=== PATIENT | male | born 1995 | race Caucasian/White ===

== ENCOUNTER 2018-06-11 17:36 | Emergency (ER) | payer MEDICAID ==
[2018-06-11] MEDS ORDERED: FAMOTIDINE 20 MG/NACL 50 ML IV ONE (18:03)
[2018-06-11] MEDS ORDERED: ONDANSETRON 4 MG/2 ML VIAL IVP ONE (18:03)
[2018-06-11] MEDS ORDERED: NS 1,000 ML IV ONE (18:03)
--- NOTE | 2018-06-11 18:05 | EDPHY ---
H & P Stated Complaint: general malaise Time Seen by Provider: 06/11/18 17:43 HPI/ROS: CHIEF COMPLAINT: Vomited, thought he might faint HISTORY OF PRESENT ILLNESS: This is a 22-year-old male with a history of bipolar disorder, no medications for over 9 years. He is currently undomiciled and unemployed, new to [place] since March of this year. He has been living outside. Today he was hiking when he began to feel weak, just generally bad, thought that he might faint, "lost control of his body and began shaking", and then vomited once. He did not lose consciousness. He does not describe what sounds like seizure activity. The only thing he has eaten today was a peanut butter and jelly sandwich that he subsequently threw up. He denies headache, confusion, numbness, or weakness. He has had no head trauma. He is not experiencing abdominal pain but has mild nausea. He has not had diarrhea. He denies urinary symptoms. He has not been aware of fever. Nine years ago he took Abilify for a couple of months but became quite REVIEW OF SYSTEMS: A ten system review of systems was performed and is negative with the exception of the items mentioned in the HPI. Past medical history: Bipolar disease Past surgical history: Noncontributory Social history: No tobacco products, alcohol, illicits. He is homeless. He is unemployed. General Appearance: Alert. Vital signs reviewed. Eyes: Pupils equal and round, no conjunctival injection, no discharge. Anicteric. ENT, Mouth: Mucous membranes are slightly dry, no oropharyngeal erythema or edema. Neck: No lymphadenopathy, supple. Respiratory: Lungs are clear to auscultation; no wheezes, rales, or rhonchi. Cardiovascular: Regular rate and rhythm; no murmur, rub, or gallop. Gastrointestinal: Abdomen is soft and nontender, no masses or organomegaly, bowel sounds normal. Skin: Warm and dry, no rashes on exposed skin, normal color. Back: Nontender to palpation over the thoracolumbar spine. No CVAT. Extremities: No lower extremity edema, no calf tenderness or swelling. Neurological: Alert and oriented. Moving all four extremities easily and equally. KAN. EOMI. Facial expression symmetric. Hearing intact to spoken voice. Sensation intact to light touch over all 4 extremities. Psychiatric: Normal affect. - Personal History Current Tetanus/Diphtheria Vaccine: Unsure Current Tetanus Diphtheria and Acellular Pertussis (TDAP): Unsure - Medical/Surgical History Hx Asthma: Yes Hx Chronic Respiratory Disease: No Hx Diabetes: No Hx Cardiac Disease: No Hx Renal Disease: No Hx Cirrhosis: No Hx Alcoholism: Yes Hx HIV/AIDS: No Hx Splenectomy or Spleen Trauma: No Other PMH: bi-polar, tansient Constitutional: Initial Vital Signs Temperature (C) 36.8 C 06/11/18 17:45 Heart Rate 112 H 06/11/18 17:45 Respiratory Rate 18 06/11/18 17:45 Blood Pressure 105/63 06/11/18 17:45 O2 Sat (%) 95 06/11/18 17:45 O2 Delivery Mode Room Air Medical Decision Making ED Course/Re-evaluation: A 22-year-old male with history of bipolar disorder, unmedicated. He presents with general malaise and 1 episode of vomiting. He describes some presyncopal symptoms, did not faint. In the emergency department he received 1 L IV fluid and Zofran 4 mg p.o.. He also received Pepcid. He passed a p. O. Challenge. On reexamination is abdomen remains soft and nontender. I reviewed his labs which included CBC and chemistries. He is concerned about diabetes, as he has a family history of diabetes. He requested hemoglobin A1c in this is within normal range. I have not found an illness that would require further emergency department evaluation. He has been able to eat and drink without further vomiting. His abdomen is not surgical. I feel that he can safely be discharged. He was initially tachycardic and this resolved after the administration of fluids. He is given a referral to [facility] and informed about the hours for homeless. He is also referred to [facility]. Differential Diagnosis: I considered a differential diagnosis that includes but is not limited to GERD, pancreatitis, cholecystitis, appendicitis, gastritis, and urinary tract infection. I also considered causes of syncope and presyncope including cardiac arrhythmia, dehydration, blood loss. - Data Points Laboratory Results: Laboratory Results 06/11/18 17:45 06/11/18 17:45 Medications Given: Discontinued Medications Sodium Chloride (Ns) 1,000 mls @ 0 mls/hr IV EDNOW ONE; Wide Open PRN Reason: Protocol Stop: 06/11/18 18:04 Last Admin: 06/11/18 18:10 Dose: 1,000 mls Famotidine/Sodium Chloride (Pepcid 20 Mg (Premix)) 50 mls @ 200 mls/hr IV EDNOW ONE Stop: 06/11/18 18:17 Last Admin: 06/11/18 18:20 Dose: 50 mls Ondansetron HCl (Zofran) 4 mg IVP EDNOW ONE Stop: 06/11/18 18:04 Last Admin: 06/11/18 18:51 Dose: 4 mg Departure - Departure Disposition: Home, Routine, Self-Care Clinical Impression: Pre-syncope Condition: Good Instructions: Near Syncope (ED) Additional Instructions: I am providing you with referrals to [facility] for primary care. They have times available for the homeless. If you call them they can provide those times for you. I am also referring you to [facility]. They can help you with your bipolar disease. Please contact both [facility] and [facility] to arrange follow-up. Referrals: [facility],. [Clinic] - As per Instructions [facility] [Outside] - As per Instructions
[2018-06-11 18:15] LABS: PLATELET COUNT 452 10^3/uL (150-400)
[2018-06-11 19:56] VITALS: BP 106/54
== END 2018-06-11 19:56 | disposition home or self-care (01) ==
DX: R55 Syncope and collapse (principal); R11.10 Vomiting, unspecified; E86.9 Volume depletion, unspecified; Z59.0 Homelessness
CPT/HCPCS: 96374; J2405

== ENCOUNTER 2018-06-21 14:13 | Emergency (ER) | payer MEDICAID ==
[2018-06-21] MEDS ORDERED: NS 1,000 ML IV ONE (15:27)
--- NOTE | 2018-06-21 15:27 | EDPHY ---
H & P Stated Complaint: generalized body aches, rash, n/v; started lamictal rx on Sunday 06/18 Time Seen by Provider: 06/21/18 15:26 HPI/ROS: CHIEF COMPLAINT: Multiple complaints including nausea, vomiting, diarrhea, myalgias and a new fine rash leg since starting Lamictal. HISTORY OF PRESENT ILLNESS: Patient presents today to the ED with the above complaints after starting Lamictal 3 days ago. The patient denies any fever, cough or congestion. He denies any abdominal pain. He denies any history of fall or trauma. He denies any acute neurologic symptoms. The patient denies suicidal ideation, homicidal ideation or acute psychiatric complaints. The patient does contract for safety. He denies any recent antibiotic use or travel outside the [place]. REVIEW OF SYSTEMS: A comprehensive 10 point review of systems is otherwise negative aside from elements mentioned in the history of present illness. Source: Patient - Personal History Current Tetanus/Diphtheria Vaccine: Unsure Current Tetanus Diphtheria and Acellular Pertussis (TDAP): Unsure - Medical/Surgical History Hx Asthma: Yes Hx Chronic Respiratory Disease: No Hx Diabetes: No Hx Cardiac Disease: No Hx Renal Disease: No Hx Cirrhosis: No Hx Alcoholism: No Hx HIV/AIDS: No Hx Splenectomy or Spleen Trauma: No Other PMH: Bipolar mood disorder - Social History Smoking Status: Never smoked - Physical Exam Exam: General Appearance: Alert, no distress Eyes: Pupils equal and round no pallor or injection ENT, Mouth: Mucous membranes moist Respiratory: There are no retractions, lungs are clear to auscultation Cardiovascular: Regular rate and rhythm Gastrointestinal: Abdomen is soft and nontender, no masses, bowel sounds normal Neurological: A&O, normal motor function, normal sensory exam, normal cranial nerves Skin: 2 areas of a fine papular rash noted on the inner legs. Musculoskeletal: Neck is supple nontender Extremities: symmetrical, full range of motion Psychiatric: Patient is oriented X 3, there is no agitation Constitutional: Initial Vital Signs Temperature (C) 37.5 C 06/21/18 14:18 Heart Rate 123 H 06/21/18 14:18 Respiratory Rate 16 06/21/18 14:18 Blood Pressure 135/94 H 06/21/18 14:18 O2 Sat (%) 95 06/21/18 14:18 O2 Delivery Mode Room Air Allergies/Adverse Reactions: No Known Allergies Allergy (Unverified 06/21/18 14:17) Home Medications: Medication Instructions Recorded Lamictal 06/21/18 Medical Decision Making ED Course/Re-evaluation: The patient presents the emergency department with nausea, vomiting and diarrhea and the development of a very fine rash after starting Lamictal several days ago. Patient presents the ED with minor complaints. He has no evidence of Hernández- Donte type syndrome. The patient's laboratory studies are unremarkable. The patient did receive IV fluids and Tylenol in the emergency department. At this point time I have advised him to discontinue his Lamictal. He should return to the ED for progressive rash or worsening symptoms. The patient should follow up with his primary care psychiatrist to discuss additional medications. Differential Diagnosis: Differential diagnosis considered includes Hernández-Donte syndrome, toxic epidermal necrolysis, metabolic derangement, renal failure, hepatitis - Data Points Laboratory Results: Laboratory Results 06/21/18 15:25 06/21/18 15:25 06/21/18 06/21/18 15:25 15:25 WBC 13.60 10^3/uL H 10^3/uL (3.80-9.50) RBC 5.40 10^6/uL 10^6/uL (4.40-6.38) Hgb 14.5 g/dL g/dL (13.7-17.5) Hct 45.0 % % (40.0-51.0) MCV 83.3 fL fL (81.5-99.8) MCH 26.9 pg L pg (27.9-34.1) MCHC 32.2 g/dL L g/dL (32.4-36.7) RDW 14.1 % % (11.5-15.2) Plt Count 497 10^3/uL H 10^3/uL (150-400) MPV 9.5 fL fL (8.7-11.7) Neut % (Auto) 68.0 % % (39.3-74.2) Lymph % (Auto) 23.3 % % (15.0-45.0) [place] % (Auto) 7.2 % % (4.5-13.0) Eos % (Auto) 0.7 % % (0.6-7.6) Baso % (Auto) 0.2 % L % (0.3-1.7) Nucleat RBC Rel Count 0.0 % % (0.0-0.2) Absolute Neuts (auto) 9.25 10^3/uL H 10^3/uL (1.70-6.50) Absolute Lymphs (auto) 3.17 10^3/uL H 10^3/uL (1.00-3.00) Absolute Monos (auto) 0.98 10^3/uL H 10^3/uL (0.30-0.80) Absolute Eos (auto) 0.09 10^3/uL 10^3/uL (0.03-0.40) Absolute Basos (auto) 0.03 10^3/uL 10^3/uL (0.02-0.10) Absolute Nucleated RBC 0.00 10^3/uL 10^3/uL (0-0.01) Immature Gran % 0.6 % % (0.0-1.1) Immature Gran # 0.08 10^3/uL 10^3/uL (0.00-0.10) Sodium 135 mEq/L mEq/L (135-145) Potassium 5.1 mEq/L mEq/L (3.5-5.2) Chloride 98 mEq/L mEq/L (97-110) Carbon Dioxide 25 mEq/l mEq/l (22-31) Anion Gap 12 mEq/L mEq/L (6-14) BUN 14 mg/dL mg/dL (7-23) Creatinine 1.0 mg/dL mg/dL (0.7-1.3) Estimated GFR > 60 Glucose 102 mg/dL H mg/dL (70-100) Calcium 9.2 mg/dL mg/dL (8.5-10.4) Total Bilirubin 0.6 mg/dL mg/dL (0.1-1.4) Conjugated Bilirubin 0.4 mg/dL mg/dL (0.0-0.5) Unconjugated Bilirubin 0.2 mg/dL mg/dL (0.0-1.1) AST 24 IU/L IU/L (17-59) ALT 40 IU/L IU/L (21-72) Alkaline Phosphatase 80 IU/L IU/L (38-126) Total Protein 8.3 g/dL H g/dL (6.3-8.2) Albumin 4.4 g/dL g/dL (3.5-5.0) Medications Given: Discontinued Medications Acetaminophen (Tylenol) 1,000 mg PO EDNOW ONE Stop: 06/21/18 15:45 Last Admin: 06/21/18 15:47 Dose: 1,000 mg Sodium Chloride (Ns) 1,000 mls @ 0 mls/hr IV EDNOW ONE; Wide Open PRN Reason: Protocol Stop: 06/21/18 15:28 Last Admin: 06/21/18 15:34 Dose: 1,000 mls Departure - Departure Disposition: Home, Routine, Self-Care Clinical Impression: Diarrhea, Rash Condition: Good Instructions: Acute Diarrhea (ED) Additional Instructions: 1. Tylenol as needed for pain. 2. Stop taking Lamictal. Please follow-up with your psychiatrist and discuss alternative medications and review these symptoms of rash which developed. 3. Imodium as needed for diarrhea. 4. I do recommend following up with [facility] to establish primary care. Referrals: [facility],. [Clinic] - As per Instructions
[2018-06-21] MEDS ORDERED: ACETAMINOPHEN 500 MG TAB PO ONE (15:44)
[2018-06-21 16:10] LABS: PLATELET COUNT 497 10^3/uL (150-400)
[2018-06-21 16:42] VITALS: BP 132/96
== END 2018-06-21 16:41 | disposition home or self-care (01) ==
DX: R19.7 Diarrhea, unspecified (principal); R21 Rash and other nonspecific skin eruption; R11.2 Nausea with vomiting, unspecified; E86.9 Volume depletion, unspecified; M79.10 Myalgia, unspecified site; F31.9 Bipolar disorder, unspecified